=== PATIENT | female | born 1945 | race Caucasian/White ===

== ENCOUNTER 2023-03-26 15:25 | Emergency (ER) | payer MEDICARE, OTHER, SELFPAY ==
--- NOTE | ~2023-03-26 | XR_ITS ---
EXAMINATION: XR FOOT, LEFT CLINICAL INFORMATION: Left great toe pain following injury. COMPARISON: None available. TECHNIQUE: AP, lateral, and oblique views of the left foot. FINDINGS: Decreased bone mineralization. Alignment is anatomic. Diffuse interphalangeal joint space narrowing. Joint space narrowing of the first MTP joint. No displaced fracture or dislocation. Achilles enthesopathy. XR/XR foot LT 2V IMPRESSION: No acute abnormality.
--- NOTE | 2023-03-26 15:29 | ED.LOWEXIN ---
HPI - Extremity Injury (Lower) General Chief Complaint: Extremity Injury, Lower Stated Complaint: stubbed toe left foot Time Seen by Provider: 03/26/23 16:00 History of Present Illness HPI Narrative: Patient complains of left great toe nail partially lifted off when she stubbed her toe last night, she can walk on it, no other injury no other complaint denies any laceration Related Data Allergies Allergy/AdvReac Type Severity Reaction Status Date / Time erythromycin base Allergy Severe ANAPHYLAXIS Unverified 06/28/20 15:03 Penicillins Allergy Severe ANAPHYLAXIS Unverified 06/28/20 15:03 amoxicillin Allergy Unknown Verified 03/13/14 00:00 penicillin V Allergy Unknown Verified 03/13/14 00:00 sulfamethoxazole Allergy Unknown ANAPHYLAXIS Unverified 06/28/20 15:03 [From BACTRIM] trimethoprim [From BACTRIM] Allergy Unknown ANAPHYLAXIS Unverified 06/28/20 15:03 Erythromycin Allergy Unknown Uncoded 03/13/14 00:00 PMFSH Past Medical History Source: nursing notes reviewed Social History Social History Advance Directives: No Advance Directives Information Provided: Yes Physical Exam Vital Signs: Vital Signs: Last Vital Signs Temp 98.0 F 03/26/23 15:33 Pulse 83 03/26/23 15:33 Resp 18 03/26/23 15:33 BP 153/66 H 03/26/23 15:33 Pulse Ox 97 03/26/23 15:33 O2 Del Method Room Air 03/26/23 15:33 BMI result Body Mass Index 22.5 General appearance no distress Head is normocephalic atraumatic Neck is supple Respiratory no distress Extremities full range of motion x4 including left great toe, left great toenail is partially avulsed distally but fully attached at the base, the toe is otherwise on swollen no laceration neurovascular intact full range of motion, no sign of any other injury Other extremities normal Course Course Course Narrative: This is a rapid medical exam. Deferred additional HPI, ROS, PE to primary provider. 77 yo female with history of HLD, HTN, arrhythmia s/p ablation, hypothyroidism here with complaints of stubbing her left great toe last night. Will check x-ray VSS I offered to trim off the partially avulsed distal end of the nail but she did not want that, and I am not sure it would bring much improvement so we placed a bandage so the distal end of the nail wound catch on things and she is advised to just keep it covered and taped down and away ventrally grow out and to keep trimming it is short as possible so does not catch, otherwise an x-ray was negative no sign of any other injury and well-appearing patient ambulated easily is discharged Discharge Plan Discharge Clinical Impression: Nail avulsion of toe Patient Disposition: Home, Self-Care Additional Instructions: The distal part of the nail is loose, but it is very well attached at the base Best plan to avoid pain is to keep it taped down so it does not catch on things or bend further backward, and to keep it trimmed as short as possible Do not wear tight shoes This should get better in a reasonable time frame Return any concerns
[2023-03-26 15:33] VITALS: BP 153/66; PULSE 83; RESP 18; TEMP 36.7; O2SAT 97; BMI 22.5
== END 2023-03-26 16:44 | disposition home or self-care (01) ==
PROVIDERS: Emergency Provider Emergency Medicine
DX: S91.202A Unspecified open wound of left great toe with damage to nail, initial encounter (principal); X58.XXXA Exposure to other specified factors, initial encounter; Y93.9 Activity, unspecified; Y92.9 Unspecified place or not applicable; Y99.9 Unspecified external cause status
CPT/HCPCS: 73620; 99282; 99283